=== PATIENT | male | born 1985 | race Caucasian/White ===

== ENCOUNTER 2016-07-17 17:22 | Emergency (ER) | payer MEDICARE, OTHER ==
[~2016-07-17] VITALS: Ht 182.9 cm; Wt 104.3 kg
== END 2016-07-17 18:00 | disposition short-term general hospital (02) ==
LOC: ER 17:22
PROC: 2W3GX1Z Immobilization of Right Thumb using Splint (ICD-10-PCS; principal; 2016-07-17)
DX: S67.01XA Crushing injury of right thumb, initial encounter (principal); W22.8XXA Striking against or struck by other objects, initial encounter